=== PATIENT | male | born 1945 | race Caucasian/White ===

== ENCOUNTER 2018-03-02 07:52 | Day surgery (SDC) | payer BC, MEDICARE ==
[~2018-03-02 07:52] MED LIST: Lactated Ringers 1,000 ML IV SCH; Sodium Chloride 0.9% 10 ML Syringe FLUSH PRN
[2018-03-02] MEDS ORDERED: fentaNYL 100 MCG/2 ML SDV ONE ×2 (08:41→09:09)
[2018-03-02] MEDS ORDERED: Midazolam 1 MG/ML 2 ML SDV ONE ×2 (08:42→09:09)
[2018-03-02] MEDS ORDERED: Propofol 200 MG/20 ML SDV ONE ×2 (08:42→09:09)
--- NOTE | 2018-03-02 09:13 | PCM.HPR ---
H & P Addendum review - H & P Addendum Review Date of Original H & P: 02/20/18 Date Reviewed: 03/02/18 Time Reviewed: 08:00 Patient was Examined: No Changes
--- NOTE | 2018-03-02 09:39 | PCM.OPNOTE ---
- General Post-Op/Procedure Note Date of Surgery/Procedure: 03/02/18 Operative Procedure(s): Colonoscopy with polypectomy Findings: Rectal polyp Pre Op Diagnosis: Pos Cologuard Post-Op Diagnosis: Same Anesthesia Technique: MAC Primary Surgeon: Sunny Gage Anesthesia Provider: Alethea Alvarado EBL in mLs: 0 Complications: None Condition: Good Free Text/Narrative:: Intake & Output 03/01/18 03/02/18 03/02/18 22:59 06:59 14:59 Intake Total 400 Balance 400
[2018-03-02 14:00] VITALS: BP 128/71
--- NOTE | 2018-03-03 08:06 | OR ---
EASDate of Procedure: 03/02/2018 PREOPERATIVE DIAGNOSIS: Positive Cologuard. POSTOPERATIVE DIAGNOSIS: Rectal polyp. PROCEDURE: Colonoscopy with polypectomy. ANESTHESIA: IV sedation. DESCRIPTION OF PROCEDURE: The patient was brought to the procedure room where he was placed on his left side and IV sedation administered. Digital rectal exam was performed which was normal. Colonoscope was inserted and advanced to the level of the cecum without difficulty. Cecal position was confirmed by identifying the appendiceal lumen and the ileocecal valve. Prep was good with some thick stool remaining in the cecal area that was mostly irrigated and suctioned. Upon withdrawing the scope, the ascending, transverse, and descending colon were normal in appearance. Sigmoid colon was normal. Rectum has a 5 mm sessile polyp located 5 cm from the anal verge that was removed with the hot biopsy forceps. Retroflexion was normal. Air was removed and the scope withdrawn. Patient tolerated the tolerated the procedure well and returned to recovery in stable condition. The patient will followup with Dimple Christensen next week for review of pathology report. If the polyp was adenomatous, he should have a repeat colonoscopy in 3 years. If polyp is hyperplastic, he does not need another colon screening since he would be over age 81 in 10 years. HUMBERTO MENDOZA MD /[id number]
== END 2018-03-02 10:47 | disposition home or self-care (01) ==
LOC: LL.SDS 07:52
PROVIDERS: ATTEND Surgery
DX: R19.5 Other fecal abnormalities (principal); D12.8 Benign neoplasm of rectum; M19.90 Unspecified osteoarthritis, unspecified site; I25.10 Atherosclerotic heart disease of native coronary artery without angina pectoris; I11.9 Hypertensive heart disease without heart failure; I45.10 Unspecified right bundle-branch block; I48.91 Unspecified atrial fibrillation; K21.9 Gastro-esophageal reflux disease without esophagitis; E78.5 Hyperlipidemia, unspecified; J44.9 Chronic obstructive pulmonary disease, unspecified; Z79.01 Long term (current) use of anticoagulants; Z79.899 Other long term (current) drug therapy; Z88.1 Allergy status to other antibiotic agents; Z88.8 Allergy status to other drugs, medicaments and biological substances
CPT/HCPCS: 88305; J2250; J2704; J3010; J7120

== ENCOUNTER 2021-12-18 20:05 | Emergency (ER) | payer MEDICARE ==
[2021-12-18 20:18] VITALS: BP 129/84; PULSE 96
[2021-12-19] MEDS ORDERED: Amoxicillin/Clavulanate K 875-125 MG Tab PO SCH (08:00)
== END 2021-12-18 21:30 | disposition home or self-care (01) ==
LOC: LL.ED 20:05
DX: J18.9 Pneumonia, unspecified organism (principal); R09.89 Other specified symptoms and signs involving the circulatory and respiratory systems; I25.10 Atherosclerotic heart disease of native coronary artery without angina pectoris; I48.91 Unspecified atrial fibrillation; I10 Essential (primary) hypertension; J44.9 Chronic obstructive pulmonary disease, unspecified; Z79.899 Other long term (current) drug therapy; Z88.8 Allergy status to other drugs, medicaments and biological substances; Z91.018 Allergy to other foods
CPT/HCPCS: 71046; 93010; 99284; 99285-25

== ENCOUNTER 2024-09-19 16:37 | Inpatient (IN) | payer MEDICARE ==
[2024-09-19] MEDS ORDERED: Albuterol/Ipratropium 3.0-0.5 MG/3 ML Neb Soln INH PRN (18:18)
[2024-09-19] MEDS: Lidocaine 4% Top Soln 50 ML Bottle MUCMEM ONE (19:08)
[2024-09-19] MEDS: Sodium Chloride 0.9% 1,000 ML IV SCH (19:42)
[2024-09-19] MEDS ORDERED: Sodium Chloride 0.9% 1,000 ML IV SCH (19:45)
[2024-09-19 19:55] LABS: MAGNESIUM 1.6 mg/dL (1.8-2.4)
[2024-09-19 19:56] LABS: LACTIC ACID 1.4 mmol/L (0.4-2.0)
[2024-09-19] MEDS: Albuterol/Ipratropium 3.0-0.5 MG/3 ML Neb Soln INH SCH (20:00)
[2024-09-19] MEDS: Sodium Chloride 0.9% 10 ML Syringe FLUSH PRN (20:01)
[2024-09-19] MEDS: Metoprolol Tartrate 5 MG/5 ML SDV IVPUSH SCH (20:02)
[2024-09-19] MEDS: HYDROmorphone 1 MG/ML Syringe IVPUSH PRN (22:10)
[2024-09-20 07:22] LABS: BASOPHILS ABSOLUTE AUTO 0.02 K/uL (0.00-0.20); BASOPHILS PERCENT AUTO 0.2 % (0.0-2.0); EOSINOPHILS ABSOLUTE AUTO 0.08 K/uL (0.00-0.50); HEMATOCRIT 37.7 % (39.0-49.0); HEMOGLOBIN 13.1 g/dL (13.1-16.8); IMMATURE GRAN ABSOLUTE AUTO 0.04 10^3/uL (0.00-0.04); IMMATURE GRAN PERCENT AUTO 0.5 % (0.0-0.4); LYMPHOCYTES ABSOLUTE AUTO 1.52 K/uL (0.50-3.50); LYMPHOCYTES PERCENT AUTO 18.4 % (10.0-50.0); MEAN CORPUSCULAR HEMOGLOBIN 31.3 pg (28.2-33.3); MEAN CORPUSCULAR HGB CONC 34.7 g/dL (31.7-36.0); MONOCYTES ABSOLUTE AUTO 1.05 K/uL (0.00-1.00); MONOCYTES PERCENT AUTO 12.7 % (2.0-14.0); NEUTROPHILS ABSOLUTE AUTO 5.53 K/uL (1.40-7.00); NEUTROPHILS PERCENT AUTO 67.2 % (45.0-80.0); PLATELET COUNT,PLT 195 K/uL (150-350); RED BLOOD CELL COUNT 4.19 M/uL (4.33-5.41); RED CELL DISTRIBUTION WIDTH 12.8 % (11.2-14.1); WHITE BLOOD CELL COUNT,WBC 8.2 K/uL (4.0-10.2)
[2024-09-20 07:50] LABS: ALANINE AMINOTRANSFERASE,ALT 19 U/L (12-78); ALBUMIN 2.9 g/dL (3.4-5.0); ALKALINE PHOSPHATASE 69 IU/L (46-116); ASPARTATE AMNIOTRANSFERASE,AST 19 U/L (15-37); BILIRUBIN TOTAL 0.5 mg/dL (0.2-1.0); BLOOD UREA NITROGEN,BUN 11 mg/dL (7-18); CALCIUM 8.8 mg/dL (8.5-10.1); CARBON DIOXIDE,CO2 28.1 mmol/L (21.0-32.0); CHLORIDE,CL 105 mmol/L (98-107); CREATININE 0.81 mg/dL (0.51-1.17); GLUCOSE RANDOM 100 mg/dL (70-99); MAGNESIUM 1.5 mg/dL (1.8-2.4); PHOSPHORUS 3.1 mg/dL (2.6-4.7); PROTEIN TOTAL,TP 5.8 g/dL (6.4-8.2); SODIUM,NA 141 mmol/L (136-145)
[2024-09-20] MEDS ORDERED: Furosemide 20 MG/2 ML VIAL IVPUSH SCH (08:00)
[2024-09-20 08:09] LABS: ANION GAP 10.9 meq/L (7-15); ESTIMATED GFR 90 mL/min (>=60)
[2024-09-20 08:10] LABS: PROTHROMBIN TIME 49.6 SEC (9.0-11.1); PTT,PARTIAL THROMBOPLSTIN TIME 45.6 SEC (23.8-34.4)
[2024-09-20 08:42] LABS: INR 5.6 (0.9-1.1)
[2024-09-20] MEDS: Magnesium Sulf/Wat 4 GM/100 mL 4 GM in Premix Bag 1 BAG IV ONE (09:51)
[2024-09-20] MEDS: Enoxaparin 40 MG/0.4 ML Syringe SUBCUT SCH (10:47)
[2024-09-20] MEDS: Furosemide 20 MG/2 ML VIAL IVPUSH SCH (11:39)
[2024-09-20] MEDS: Mometasone Furoate Powder 220 MCG/Puff 14 Dose Inhaler INH SCH ×2 (14:16→17:03)
[2024-09-20] MEDS: NS + KCl 20mEq/L 1,000 ML IV SCH (16:55)
[2024-09-21 07:41] LABS: BASOPHILS ABSOLUTE AUTO 0.01 K/uL (0.00-0.20); BASOPHILS PERCENT AUTO 0.1 % (0.0-2.0); EOSINOPHILS ABSOLUTE AUTO 0.08 K/uL (0.00-0.50); EOSINOPHILS PERCENT AUTO 0.9 % (0.0-5.0); HEMATOCRIT 40.8 % (39.0-49.0); HEMOGLOBIN 13.8 g/dL (13.1-16.8); IMMATURE GRAN ABSOLUTE AUTO 0.04 10^3/uL (0.00-0.04); IMMATURE GRAN PERCENT AUTO 0.5 % (0.0-0.4); LYMPHOCYTES ABSOLUTE AUTO 1.39 K/uL (0.50-3.50); LYMPHOCYTES PERCENT AUTO 16.5 % (10.0-50.0); MEAN CORPUSCULAR HEMOGLOBIN 30.8 pg (28.2-33.3); MEAN CORPUSCULAR HGB CONC 33.8 g/dL (31.7-36.0); MEAN CORPUSCULAR VOLUME 91.1 fL (84.0-98.0); MONOCYTES ABSOLUTE AUTO 1.12 K/uL (0.00-1.00); MONOCYTES PERCENT AUTO 13.3 % (2.0-14.0); NEUTROPHILS ABSOLUTE AUTO 5.79 K/uL (1.40-7.00); NEUTROPHILS PERCENT AUTO 68.7 % (45.0-80.0); PLATELET COUNT,PLT 205 K/uL (150-350); RED BLOOD CELL COUNT 4.48 M/uL (4.33-5.41); RED CELL DISTRIBUTION WIDTH 12.9 % (11.2-14.1); WHITE BLOOD CELL COUNT,WBC 8.4 K/uL (4.0-10.2)
[2024-09-21 08:39] LABS: CALCIUM 8.8 mg/dL (8.5-10.1); CARBON DIOXIDE,CO2 25.2 mmol/L (21.0-32.0); CREATININE 0.84 mg/dL (0.51-1.17); EST CRCL DRUG DOSING (CG) 70.12 mL/min; MAGNESIUM 2.1 mg/dL (1.8-2.4); POTASSIUM,K 3.4 mmol/L (3.5-5.1)
[2024-09-21 08:54] LABS: ANION GAP 15.2 meq/L (7-15)
[2024-09-21 09:34] LABS: PROTHROMBIN TIME 45.9 SEC (9.0-11.1)
[2024-09-21 09:37] LABS: INR 5.1 (0.9-1.1)
[2024-09-22] MEDS: Metoprolol Succinate 50 MG Tab.ER PO SCH (07:57)
[2024-09-22 08:32] LABS: BASOPHILS ABSOLUTE AUTO 0.02 K/uL (0.00-0.20); BASOPHILS PERCENT AUTO 0.2 % (0.0-2.0); EOSINOPHILS ABSOLUTE AUTO 0.19 K/uL (0.00-0.50); EOSINOPHILS PERCENT AUTO 2.3 % (0.0-5.0); HEMATOCRIT 37.7 % (39.0-49.0); IMMATURE GRAN ABSOLUTE AUTO 0.04 10^3/uL (0.00-0.04); IMMATURE GRAN PERCENT AUTO 0.5 % (0.0-0.4); LYMPHOCYTES ABSOLUTE AUTO 2.03 K/uL (0.50-3.50); LYMPHOCYTES PERCENT AUTO 24.4 % (10.0-50.0); MEAN CORPUSCULAR HGB CONC 34.5 g/dL (31.7-36.0); MEAN CORPUSCULAR VOLUME 89.8 fL (84.0-98.0); MONOCYTES ABSOLUTE AUTO 1.09 K/uL (0.00-1.00); MONOCYTES PERCENT AUTO 13.1 % (2.0-14.0); NEUTROPHILS ABSOLUTE AUTO 4.95 K/uL (1.40-7.00); NEUTROPHILS PERCENT AUTO 59.5 % (45.0-80.0); PLATELET COUNT,PLT 234 K/uL (150-350); RED CELL DISTRIBUTION WIDTH 12.8 % (11.2-14.1); WHITE BLOOD CELL COUNT,WBC 8.3 K/uL (4.0-10.2)
[2024-09-22 09:08] LABS: BILIRUBIN TOTAL 0.7 mg/dL (0.2-1.0); CALCIUM 8.9 mg/dL (8.5-10.1); CARBON DIOXIDE,CO2 27.9 mmol/L (21.0-32.0); CREATININE 0.84 mg/dL (0.51-1.17); EST CRCL DRUG DOSING (CG) 70.12 mL/min; MAGNESIUM 1.8 mg/dL (1.8-2.4); PROTEIN TOTAL,TP 6.3 g/dL (6.4-8.2)
[2024-09-22 09:15] LABS: POTASSIUM,K 2.9 mmol/L (3.5-5.1)
[2024-09-22 09:31] LABS: PROTHROMBIN TIME 28.3 SEC (9.0-11.1); PTT,PARTIAL THROMBOPLSTIN TIME 46.5 SEC (23.8-34.4)
[2024-09-22] MEDS: Potassium Bicarbonate/Cit Ac 20 MEQ Effervescent Tab PO ONE ×3 (11:01→13:27)
[2024-09-22] MEDS: Magnesium Oxide 400 MG Tab PO ONE (11:01)
[2024-09-22 15:07] VITALS: BP 113/73; PULSE 80
== END 2024-09-22 15:47 | disposition home or self-care (01) | DRG 389 ==
LOC: LL.MS 16:37 → UNDOADMIN 16:37 → LL.MS 16:54
PROVIDERS: ADMIT Physician Assistant; ATTEND Physician Assistant
DX: K56.609 Unspecified intestinal obstruction, unspecified as to partial versus complete obstruction (principal); I50.22 Chronic systolic (congestive) heart failure; K52.9 Noninfective gastroenteritis and colitis, unspecified; E87.6 Hypokalemia; E83.42 Hypomagnesemia; E11.9 Type 2 diabetes mellitus without complications; I48.0 Paroxysmal atrial fibrillation; I11.0 Hypertensive heart disease with heart failure; I25.10 Atherosclerotic heart disease of native coronary artery without angina pectoris; J44.9 Chronic obstructive pulmonary disease, unspecified; N40.0 Benign prostatic hyperplasia without lower urinary tract symptoms; H91.90 Unspecified hearing loss, unspecified ear; E78.00 Pure hypercholesterolemia, unspecified; I51.7 Cardiomegaly; J42 Unspecified chronic bronchitis; K21.9 Gastro-esophageal reflux disease without esophagitis; I45.10 Unspecified right bundle-branch block; M19.90 Unspecified osteoarthritis, unspecified site; Z90.49 Acquired absence of other specified parts of digestive tract; Z95.5 Presence of coronary angioplasty implant and graft; Z98.890 Other specified postprocedural states; Z96.612 Presence of left artificial shoulder joint; Z86.79 Personal history of other diseases of the circulatory system; Z79.899 Other long term (current) drug therapy; Z79.01 Long term (current) use of anticoagulants; Z88.8 Allergy status to other drugs, medicaments and biological substances
CPT/HCPCS: 36415; 74018; 74176; 80048; 80053; 82947; 83605; 83735; 84100; 84132; 84484; 85025; 85610; 85730; 97161-GP; 99223; 99232; 99233; 99238; A9270-GY; J1171; J1940; J3475; J3480; J3490; J7030